=== PATIENT | female | born 1945 | race Caucasian/White ===

== ENCOUNTER 2017-01-13 08:51 | Day surgery (SDC) | payer MEDICARE, BC ==
[~2017-01-13 08:51] MED LIST: LIDOCAINE HCL 1% MPF SOL ONE; PROPOFOL 500 MG/50 ML EMU IV ONE
[2017-01-13] MEDS ORDERED: ONDANSETRON HCL 4 MG/2 ML SOL ONE (09:51)
[2017-01-13 10:24] VITALS: TEMP 97
[2017-01-13 10:56] VITALS: RESP 20
[2017-01-13 11:08] VITALS: BP 161/78; PULSE 69; O2SAT 95
== END 2017-01-13 11:21 | disposition home or self-care (01) | DRG 951 ==
LOC: SURG 08:51
PROVIDERS: ATTEND Internal Medicine Gastroenterology
DX: Z12.11 Encounter for screening for malignant neoplasm of colon (principal); K57.30 Diverticulosis of large intestine without perforation or abscess without bleeding; K64.8 Other hemorrhoids
CPT/HCPCS: G0121; J2405; J2001; J2704